=== PATIENT | male | born 1985 | race Two or more races ===

== ENCOUNTER 2024-04-30 08:12 | Emergency (ER) | payer MEDICAID, OTHER ==
[~2024-04-30] VITALS: Ht 182.9 cm; Wt 85.9 kg
[2024-04-30] MEDS: HYDROcodone-ACET 10/325MG TAB PO ONE (08:35)
[2024-04-30 08:36] VITALS: TEMP 98.2
[2024-04-30 09:21] VITALS: BP 115/55; PULSE 62; RESP 18; O2SAT 99
[2024-04-30] MEDS: LIDOCAINE 2%HCL (LOCAL ANESTH.) INJ 10ml MDV IJ ONE (10:00)
[2024-04-30] MEDS: ceFAZolin IM 1GM/2.5ML STERILE WATER IM ONE (10:38)
[2024-04-30] MEDS ORDERED: IBU600T PO (10:56)
[2024-04-30] MEDS ORDERED: CEPH250C PO (10:56)
== END 2024-04-30 11:00 | disposition home or self-care (01) ==
LOC: ER 08:12
DX: S62.632A Displaced fracture of distal phalanx of right middle finger, initial encounter for closed fracture (principal); S62.634A Displaced fracture of distal phalanx of right ring finger, initial encounter for closed fracture; S61.212A Laceration without foreign body of right middle finger without damage to nail, initial encounter; F17.200 Nicotine dependence, unspecified, uncomplicated; W23.0XXA Caught, crushed, jammed, or pinched between moving objects, initial encounter; Y93.89 Activity, other specified; Y92.89 Other specified places as the place of occurrence of the external cause; Y99.8 Other external cause status
CPT/HCPCS: 12041; 29130; 73130; 96372; 99284; J0690